=== PATIENT | female | born 1955 | race Two or more races ===

== ENCOUNTER 2018-04-08 13:09 | Outpatient (CLI) | payer OTHER | END 2018-04-08 13:21 | disposition home or self-care (01) | LOC: RAD 13:09 | DX: M25.511 Pain in right shoulder (principal) ==

== ENCOUNTER 2018-04-09 14:15 | Outpatient (CLI) | payer OTHER | END 2018-04-09 14:24 | disposition home or self-care (01) | LOC: MRI 14:15 | DX: M25.511 Pain in right shoulder (principal) | CPT/HCPCS: 73221 ==

== ENCOUNTER 2018-05-20 12:01 | Outpatient (CLI) | payer OTHER | END 2018-05-20 15:58 | disposition home or self-care (01) | LOC: RAD 501 12:01 | DX: M25.561 Pain in right knee (principal); M25.562 Pain in left knee ==

== ENCOUNTER 2018-05-23 11:31 | Outpatient (CLI) | payer OTHER | END 2018-05-23 11:49 | disposition home or self-care (01) | LOC: MRI 11:31 | DX: M25.561 Pain in right knee (principal) | CPT/HCPCS: 73721 ==

== ENCOUNTER 2022-06-22 08:45 | Inpatient (IN) | payer OTHER ==
[2022-06-22] MEDS ORDERED: VALSARTAN80 MG PO (10:18)
[2022-06-22] MEDS ORDERED: ATORVASTATIN CA20 MG PO (10:18)
[2022-06-22] MEDS ORDERED: PROTONIX40 M1 PO (10:19)
== END 2022-06-29 15:07 | disposition home or self-care (01) | DRG 470 ==
LOC: O/R 06-27 07:48 → SURG 06-27 08:45 → SURH 06-27 15:46 → SURG 06-27 16:00 → SURH 06-29 15:07
PROVIDERS: ADMIT Orthopaedic Surgery; ATTEND Orthopaedic Surgery
PROC: 0SRC0J9 Replacement of Right Knee Joint with Synthetic Substitute, Cemented, Open Approach (ICD-10-PCS; principal; 2022-06-27 16:00)
DX: M17.11 Unilateral primary osteoarthritis, right knee (principal); D62 Acute posthemorrhagic anemia; M85.661 Other cyst of bone, right lower leg; I10 Essential (primary) hypertension; Z96.651 Presence of right artificial knee joint; Z20.822 Contact with and (suspected) exposure to COVID-19

== ENCOUNTER → 2022-12-25 | Outpatient (CLI) | payer OTHER ==
[~2022-12-25] MED LIST: ATORVASTATIN CA20 MG PO; PROTONIX40 M1 PO; VALSARTAN80 MG PO
== END | disposition home or self-care (01) ==
LOC: RAD 10:32
PROVIDERS: ATTEND Orthopaedic Surgery
DX: M25.561 Pain in right knee (principal); M25.562 Pain in left knee

== ENCOUNTER 2023-04-23 11:25 | Outpatient (CLI) | payer OTHER | END 2023-04-23 11:44 | disposition home or self-care (01) | LOC: MRI 11:25 | PROVIDERS: ATTEND Orthopaedic Surgery | DX: M25.562 Pain in left knee (principal) | CPT/HCPCS: 73718 ==